=== PATIENT | male | born 1985 | race Caucasian/White ===

== ENCOUNTER 2022-05-25 01:12 | Emergency (ER) | payer SELFPAY ==
[~2022-05-25] VITALS: Ht 180.3 cm; Wt 104.0 kg
[~2022-05-25 01:12] MED LIST: AMOX1TAB16 MT
[2022-05-25 01:16] VITALS: BP 112/70
[2022-05-25] MEDS ORDERED: IBUPROFEN 600MG TABLET PO ONE (03:45)
[2022-05-25] MEDS ORDERED: VISCOUS LIDOCAINE 2% 15 ML UDC MM PRN (03:45)
== END 2022-05-25 04:05 | disposition home or self-care (01) ==
LOC: ER 01:12
DX: J03.90 Acute tonsillitis, unspecified (principal); Z88.6 Allergy status to analgesic agent
CPT/HCPCS: 99283